=== PATIENT | female | born 1990 | race American Indian/Alaskan Native ===

== ENCOUNTER 2017-11-04 17:01 | Emergency (ER) | payer OTHER ==
[2017-11-04 17:40] VITALS: BP 139/77
[2017-11-04] MEDS ORDERED: TORADOL IM ONE (20:42)
[2017-11-04] MEDS ORDERED: LIDOCAINE VISCOUS 2% PO ONE (20:42)
--- NOTE | 2017-11-04 20:50 | Emergency Department Report ---
HPI - General Chief Complaint: Upper Respiratory Infection Time Seen by Provider: 11/04/17 20:33 - HPI HPI: Room 34 The patient is 26-year-old female presenting with a chief complaint of sore throat subjective fever and chills. The patient states her symptoms began 4 days ago. Patient states she has a cough that is nonproductive as well as subjective fevers. She has had chills nausea vomiting. Patient denies any sick contacts. Patient admits to nasal congestion but denies rhinorrhea. Location: [See above] Duration: 5 days Quality: Pain Severity: Moderate Modifying factors: [see above] Context: [see above] Mode of transportation: The patient is driving and there are no visitors present ED Past Medical Hx - Past Medical History Additional medical history: Polycystic ovarian syndrome - Surgical History Past Surgical History?: No - Family History Family history: no significant - Social History Smoking Status: Never Smoker Substance Use Type: None (denies illicit drug use) - Medications Home Medications: Home Medications Medication Instructions Recorded Confirmed Last Taken Type Amoxicillin/Potassium Clav 1 each PO BID #20 tablet 11/04/17 Unknown Rx [Augmentin 875-125 Tablet] HYDROcodone/APAP 5-325 [[place] 1 - 2 each PO Q6HR PRN #14 tablet 11/04/17 Unknown Rx 5/325] Ibuprofen [Motrin 800 MG tab] 800 mg PO Q8HR PRN #20 tablet 11/04/17 Unknown Rx ED Review of Systems ROS: Stated complaint: FLU Other details as noted in HPI Constitutional: fever Eyes: denies: eye pain ENT: throat pain, congestion Respiratory: cough Endocrine: no symptoms reported Gastrointestinal: nausea, vomiting Genitourinary: denies: dysuria Musculoskeletal: myalgia Neurological: denies: headache Physical Exam - Physical Exam Vital Signs: Vital Signs 11/04/17 17:35 Temperature 98.3 F Pulse Rate 95 H Respiratory 22 Rate Blood Pressure 139/77 O2 Sat by Pulse 100 Oximetry Physical Exam: GENERAL: The patient is well-developed well-nourished female lying on stretcher not appear to be in acute distress. [] HEENT: Normocephalic. Atraumatic. Extraocular motions are intact. 2-3+ tonsils bilaterally with erythema and exudate NECK: Supple. No meningitic signs are noted. There is cervical adenopathy noted. There is no stridor CHEST/LUNGS: Clear to auscultation. There is no respiratory distress noted. HEART/CARDIOVASCULAR: Regular. There is no tachycardia. There is no gallop rub or murmur. ABDOMEN: Abdomen is soft, nontender. Patient has normal bowel sounds. There is no abdominal distention. SKIN: There is no rash. There is no edema. There is no diaphoresis. NEURO: The patient is awake, alert, and oriented. The patient is cooperative. The patient has normal speech MUSCULOSKELETAL: There is no evidence of acute injury. ED Course Vital Signs 11/04/17 17:35 Temperature 98.3 F Pulse Rate 95 H Respiratory 22 Rate Blood Pressure 139/77 O2 Sat by Pulse 100 Oximetry ED Medical Decision Making - Differential Diagnosis tonsillitis Critical care attestation.: If time is entered above; I have spent that time in minutes in the direct care of this critically ill patient, excluding procedure time. ED Disposition Clinical Impression: Acute sore throat, Exudative tonsillitis Disposition: TO HOME OR SELFCARE Is pt being admited?: No Does the pt Need Aspirin: No Condition: Stable Instructions: Tonsillitis (ED) Additional Instructions: Return to the emergency department immediately should you develop worsening symptoms, fever, inability to tolerate food or liquid or any other concerns. Prescriptions: Amoxicillin/Potassium Clav [Augmentin 875-125 Tablet] 1 each PO BID #20 tablet HYDROcodone/APAP 5-325 [[place] 5/325] 1 - 2 each PO Q6HR PRN #14 tablet PRN Reason: Pain Ibuprofen [Motrin 800 MG tab] 800 mg PO Q8HR PRN #20 tablet PRN Reason: Pain, Moderate (4-6) Referrals: PRIMARY MD VANDANA [Primary Care Provider] - 3-5 Days HAIR DELGADILLO MD [Staff Physician] - 3-5 Days (Dr. Delgadillo is an park keeper (ear nose and throat doctor). Please follow up with him for further evaluation) Time of Disposition: 20:58
[2017-11-04] MEDS ORDERED: DECADRON IM ONE (20:54)
== END 2017-11-04 21:05 | disposition home or self-care (01) ==
LOC: ED 17:01
DX: J03.90 Acute tonsillitis, unspecified (principal); E28.2 Polycystic ovarian syndrome
CPT/HCPCS: 96372; 99282; J1100; J1885